=== PATIENT | female | born 1990 | race Two or more races ===

== ENCOUNTER 2020-01-07 17:46 | Inpatient (IN) | payer MEDICAID ==
[~2020-01-07] VITALS: Ht 160 cm; Wt 64.5 kg
[2020-01-07] MEDS ORDERED: SODIUM CHLORIDE 0.9% 1,000 ML IV ONE ×3 (18:12→19:17)
[2020-01-07 18:40] LABS: Eosinophils # (auto) 0 10 ^3/uL (0-0.8); Monocytes # (auto) 1.3 10 ^3/uL (0-1.3); Monocytes % (auto) 8.9 % (0.0-12.0)
[2020-01-07 18:42] LABS: Basophils # (auto) 0 10 ^3/uL (0-0.2); Basophils % (auto) 0.3 % (0.0-2.0); Hematocrit 42.2 % (36.0-46.0); Lymphocytes # (auto) 0.7 10 ^3/uL (0.4-5.4); Mean Corpuscular Hemoglobin 37.8 pg (28.0-32.0); Mean Corpuscular Hgb Conc. 33.2 g/dL (32.0-36.0); Neutrophils # (auto) 12.5 10 ^3/uL (1.6-8.6); Neutrophils % (auto) 85.8 % (37.0-80.0); Nucleated Red Blood Cells % 0.1 %; Platelet Count (auto) 355 10^3/uL (140-450); White Blood Cell 14.6 10^3/uL (4.4-10.8)
[2020-01-07 18:47] LABS: Red Cell Distribution Width 22.1 % (11.8-14.3)
[2020-01-07 18:57] LABS: Albumin 5.1 g/dL (3.4-5.0); Calcium 9.6 mg/dL (8.5-10.1); Magnesium 1.3 mg/dL (1.6-2.6)
[2020-01-07 18:59] LABS: BUN/Creatinine Ratio 9.6
[2020-01-07 19:02] LABS: Bilirubin, Total 0.8 mg/dL (0.2-1.0); Total Protein 9.4 g/dL (6.4-8.2)
[2020-01-07 19:04] LABS: Urine Bacteria FEW /hpf (None Seen); Urine Blood TRACE /uL (Negative); Urine Hyaline Cast MANY /lpf (0 - 2); Urine Mucus FEW (None Seen); Urine Specific Gravity 1.027 (1.001-1.035); Urine WBC 12 /hpf (0 - 5)
[2020-01-07 19:13] LABS: Potassium 2.9 mmol/L (3.5-5.1)
[2020-01-07] MEDS ORDERED: THIAMINE 100mg/ml INJ (200mg/2ml VIAL) IV ONE (19:30)
[2020-01-07] MEDS ORDERED: cefTRIAXone 1GM/50ML D5W 50 ML IV ONE (19:30)
[2020-01-07] MEDS: POTASSIUM CHL 20MEQ/100ML 100 ML IV SCH ×2 (20:58→22:54)
[2020-01-07] MEDS ORDERED: SODIUM CHLORIDE 0.9% 500 ML IV ONE (22:00)
[2020-01-07 23:21] LABS: Amylase 63 U/L (25-115); Lipase 68 U/L (73-393)
[2020-01-08] MEDS ORDERED: ONDANSETRON HCL 4 MG/2 ML VIAL IV PRN (00:45)
[2020-01-08] MEDS ORDERED: TEMAZEPAM 15 MG CAP PO PRN (00:45)
[2020-01-08] MEDS: SOD CHL 0.9%/ KCL 20MEQ 1,000 ML IV SCH ×2 (01:34→14:20)
[2020-01-08] MEDS: MAGNESIUM SULFATE 1GM/100ML 100 ML IV SCH ×2 (01:37→03:05)
[2020-01-08 03:00] VITALS: BP 143/92
--- NOTE | 2020-01-08 03:05 | NUR ---
MS admit from ER MIKE STATON admitted to tele/MS, SBAR not received. Patient oriented to [facility] RN, unit, room, bed, and unit policies regarding patient care and visiting hours. Patient weighed by bedscale and encouraged to call if they need something. All questions and concerns addressed, patient verbalized understanding.
[2020-01-08] MEDS ORDERED: chlordiazePOXIDE HCL 25 MG CAP PO PRN (03:15)
[2020-01-08 05:14] VITALS: BP 143/92
--- NOTE | 2020-01-08 08:00 | NUR ---
OPENING SHIFT NOTE ASSUMED CARE OF PATIENT AWAKE AND ALERT. NO S/S OF DISTRESS NOTED OR COMPLAINTS OF PAIN. PATIENT UPDATED ON POC FOR THE DAY AND ALL QUESTIONS ANSWERED. BED IS IN LOWEST, LOCKED POSITION WITH SIDE RAILS UP X2 AND CALL LIGHT WITHIN REACH. WILL CONTINUE TO MONITOR Q1H AND PRN.
[2020-01-08 09:00] VITALS: BP 133/84
[2020-01-08] MEDS: cefTRIAXone 1GM/50ML D5W 50 ML IV SCH (09:22)
[2020-01-08] MEDS: THIAMINE HCL 100 MG TAB PO SCH (09:23)
[2020-01-08] MEDS: FAMOTIDINE 20 MG TAB PO SCH ×2 (09:23→22:45)
[2020-01-08 10:10] LABS: Basophils # (auto) 0 10 ^3/uL (0-0.2); Basophils % (auto) 0.2 % (0.0-2.0); Eosinophils # (auto) 0 10 ^3/uL (0-0.8); Hematocrit 35.7 % (36.0-46.0); Hemoglobin 12.1 g/dL (12.2-16.2); Lymphocytes % (auto) 11.1 % (10.0-50.0); Mean Corpuscular Hemoglobin 38.4 pg (28.0-32.0); Mean Corpuscular Hgb Conc. 33.8 g/dL (32.0-36.0); Mean Corpuscular Volume 113.5 fL (80.0-100.0); Monocytes # (auto) 0.8 10 ^3/uL (0-1.3); Monocytes % (auto) 8.8 % (0.0-12.0); Neutrophils # (auto) 7.3 10 ^3/uL (1.6-8.6); Neutrophils % (auto) 79.9 % (37.0-80.0); Platelet Count (auto) 267 10^3/uL (140-450); Red Blood Cells 3.15 10^6/uL (4.0-5.20); White Blood Cell 9.1 10^3/uL (4.4-10.8)
[2020-01-08 10:11] LABS: Red Cell Distribution Width 22.3 % (11.8-14.3)
[2020-01-08 10:27] LABS: Albumin 3.8 g/dL (3.4-5.0); Calcium 8.1 mg/dL (8.5-10.1); Potassium 3.4 mmol/L (3.5-5.1)
[2020-01-08 10:32] LABS: Bilirubin, Total 0.8 mg/dL (0.2-1.0); Total Protein 7.2 g/dL (6.4-8.2)
[2020-01-08] MEDS ORDERED: POTASSIUM CHLORIDE 20 MEQ, LIDOCAINE 1% (LOCAL ANESTH.) 2 ML in SODIUM CHL 0.9% 100 ML IV ONE (12:00)
--- NOTE | 2020-01-08 12:10 | NUR ---
COVID SWAB [facility] COVID SWAB TAKEN AND WALKED TO LAB.
[2020-01-08 13:00] VITALS: BP 136/86
[2020-01-08 16:29] VITALS: BP 133/87
--- NOTE | 2020-01-08 19:00 | NUR ---
OPENING SHIFT NOTE ASSUMED CARE OF PATIENT AWAKE AND ALERT X 4 AMBULATING, TOOK A SHOWER, NO DIZZINESS. PATIENT DENIES HAVING A N/V, TOLERATED WELL CLEAR LIQUIDS DINNER. NO S/S OF DISTRESS NOTED OR COMPLAINTS OF PAIN. PATIENT UPDATED ON POC FOR THE DAY AND ALL QUESTIONS ANSWERED. BED IS IN LOWEST, LOCKED POSITION WITH SIDE RAILS UP X2 AND CALL LIGHT WITHIN REACH. WILL CONTINUE TO MONITOR.
[2020-01-08 21:43] VITALS: BP 143/84
[2020-01-09] MEDS: SOD CHL 0.9%/ KCL 20MEQ 1,000 ML IV SCH (03:38)
[2020-01-09 04:42] VITALS: BP 142/90
[2020-01-09 05:43] LABS: Basophils # (auto) 0.1 10 ^3/uL (0-0.2); Eosinophils # (auto) 0 10 ^3/uL (0-0.8); Eosinophils % (auto) 0.1 % (0.0-7.0); Hemoglobin 11.7 g/dL (12.2-16.2); Monocytes # (auto) 0.5 10 ^3/uL (0-1.3); Neutrophils # (auto) 3.7 10 ^3/uL (1.6-8.6); White Blood Cell 5.5 10^3/uL (4.4-10.8)
[2020-01-09 05:45] LABS: Hematocrit 34.6 % (36.0-46.0); Lymphocytes # (auto) 1.2 10 ^3/uL (0.4-5.4); Lymphocytes % (auto) 21.9 % (10.0-50.0); Mean Corpuscular Hemoglobin 38.8 pg (28.0-32.0); Mean Corpuscular Hgb Conc. 33.7 g/dL (32.0-36.0); Mean Corpuscular Volume 115.2 fL (80.0-100.0); Monocytes % (auto) 9.3 % (0.0-12.0); Neutrophils % (auto) 67.7 % (37.0-80.0); Nucleated Red Blood Cells % 0.1 %; Platelet Count (auto) 227 10^3/uL (140-450); Red Cell Distribution Width 21.6 % (11.8-14.3)
[2020-01-09 06:12] LABS: Albumin 3.7 g/dL (3.4-5.0); Potassium 3.5 mmol/L (3.5-5.1)
[2020-01-09 06:17] LABS: BUN/Creatinine Ratio 9.9; Bilirubin, Total 0.8 mg/dL (0.2-1.0)
[2020-01-09 08:47] VITALS: BP 140/98
[2020-01-09] MEDS: cefTRIAXone 1GM/50ML D5W 50 ML IV SCH (09:09)
[2020-01-09] MEDS: THIAMINE HCL 100 MG TAB PO SCH (09:09)
[2020-01-09] MEDS: FAMOTIDINE 20 MG TAB PO SCH (09:10)
[2020-01-09] MEDS ORDERED: NITR100C6 PO (10:41)
[2020-01-09] MEDS ORDERED: FAMO-12 PO (10:41)
[2020-01-09] MEDS ORDERED: CLON0.1T PO (10:41)
[2020-01-09] MEDS ORDERED: THIA100T10 PO (10:41)
[2020-01-09] MEDS ORDERED: FOLI1TAB6 PO (10:41)
[2020-01-09 13:08] VITALS: BP 138/82
[2020-01-09 14:12] VITALS: BP 138/82
--- NOTE | 2020-01-09 15:23 | NUR ---
Discharge instructions given as ordered. Encourage to follow up with PMD as instructed. All questions and concerns addressed. Patient verbalized understanding. IV removed with catheter intact, pressure dressing applied. Patient ambulated to vehicle with all personal belongings, accompanied by staff. No distress noted at time of departure.
== END 2020-01-09 15:23 | disposition home or self-care (01) | DRG 249 ==
LOC: ER 17:46 → WEST WING 17:47
PROVIDERS: ADMIT Nurse Practitioner; ATTEND Internal Medicine
DX: K52.9 Noninfective gastroenteritis and colitis, unspecified (principal); K70.9 Alcoholic liver disease, unspecified; N39.0 Urinary tract infection, site not specified; E86.0 Dehydration; E87.6 Hypokalemia; R73.9 Hyperglycemia, unspecified; D72.829 Elevated white blood cell count, unspecified; N17.0 Acute kidney failure with tubular necrosis; D75.89 Other specified diseases of blood and blood-forming organs; Z20.828 Contact with and (suspected) exposure to other viral communicable diseases; K76.0 Fatty (change of) liver, not elsewhere classified
CPT/HCPCS: 36415; 36600; 71045; 74176; 80053; 80320; 81001; 81025; 82150; 82805; 83605; 83690; 83735; 84702; 85025; 87040; 87086; 99291; G0378; J0696; J2001; J3480

== ENCOUNTER → 2020-04-02 | Outpatient (CLI) | payer MEDICAID ==
[~2020-04-02] MED LIST: CLON0.1T PO; FAMO-12 PO; FOLI1TAB6 PO; NITR100C6 PO; THIA100T10 PO
[2020-04-02 09:26] LABS: Basophils # (auto) 0.1 10 ^3/uL (0-0.2); Monocytes # (auto) 0.5 10 ^3/uL (0-1.3); Nucleated Red Blood Cells % 0.1 %; White Blood Cell 6.1 10^3/uL (4.4-10.8)
[2020-04-02 09:28] LABS: Basophils % (auto) 1.3 % (0.0-2.0); Eosinophils # (auto) 0.2 10 ^3/uL (0-0.8); Eosinophils % (auto) 3.3 % (0.0-7.0); Hematocrit 38.8 % (36.0-46.0); Hemoglobin 13.3 g/dL (12.2-16.2); Lymphocytes # (auto) 2.1 10 ^3/uL (0.4-5.4); Lymphocytes % (auto) 33.9 % (10.0-50.0); Mean Corpuscular Hemoglobin 35.2 pg (28.0-32.0); Mean Corpuscular Hgb Conc. 34.2 g/dL (32.0-36.0); Mean Corpuscular Volume 103.1 fL (80.0-100.0); Monocytes % (auto) 7.8 % (0.0-12.0); Neutrophils # (auto) 3.3 10 ^3/uL (1.6-8.6); Neutrophils % (auto) 53.7 % (37.0-80.0); Platelet Count (auto) 300 10^3/uL (140-450); Red Blood Cells 3.77 10^6/uL (4.0-5.20); Red Cell Distribution Width 17.4 % (11.8-14.3)
[2020-04-02 10:06] LABS: BUN/Creatinine Ratio 9.4; Bilirubin, Total 0.5 mg/dL (0.2-1.0); Calcium 8.8 mg/dL (8.5-10.1); Total Protein 7.2 g/dL (6.4-8.2)
[2020-04-02 10:13] LABS: Potassium 2.9 mmol/L (3.5-5.1)
== END | disposition home or self-care (01) ==
LOC: LAB 09:02
PROVIDERS: ATTEND Physician Assistant
DX: I10 Essential (primary) hypertension (principal); E87.6 Hypokalemia; N17.9 Acute kidney failure, unspecified; K21.01 Gastro-esophageal reflux disease with esophagitis, with bleeding; Z72.89 Other problems related to lifestyle
CPT/HCPCS: 36415; 80053; 80061; 85025

== ENCOUNTER 2020-05-21 12:50 | Emergency (ER) | payer MEDICAID ==
[~2020-05-21] VITALS: Ht 162.6 cm; Wt 63.5 kg
[2020-05-21 13:14] VITALS: BP 150/91
[2020-05-21] MEDS ORDERED: LORazepam 2MG/ML-1ML VIAL IV ONE (13:15)
[2020-05-21] MEDS ORDERED: PROCHLORPERAZINE EDISYLATE 5 MG/ML 2ML VIAL IV ONE (13:15)
[2020-05-21] MEDS ORDERED: SODIUM CHLORIDE 0.9% 1,000 ML IV ONE (13:15)
[2020-05-21 13:28] LABS: Basophils # (auto) 0.1 10 ^3/uL (0-0.2); Eosinophils # (auto) 0 10 ^3/uL (0-0.8); Eosinophils % (auto) 0.1 % (0.0-7.0); Hemoglobin 13.1 g/dL (12.2-16.2); Lymphocytes # (auto) 1.5 10 ^3/uL (0.4-5.4); Monocytes # (auto) 0.3 10 ^3/uL (0-1.3)
[2020-05-21 13:30] LABS: Basophils % (auto) 1.3 % (0.0-2.0); Hematocrit 37.9 % (36.0-46.0); Lymphocytes % (auto) 22.2 % (10.0-50.0); Mean Corpuscular Hemoglobin 37.1 pg (28.0-32.0); Mean Corpuscular Hgb Conc. 34.7 g/dL (32.0-36.0); Monocytes % (auto) 4.2 % (0.0-12.0); Neutrophils # (auto) 4.8 10 ^3/uL (1.6-8.6); Neutrophils % (auto) 72.2 % (37.0-80.0); Platelet Count (auto) 374 10^3/uL (140-450); Red Blood Cells 3.54 10^6/uL (4.0-5.20); Red Cell Distribution Width 17.2 % (11.8-14.3); White Blood Cell 6.7 10^3/uL (4.4-10.8)
[2020-05-21 13:49] LABS: Albumin 4.6 g/dL (3.4-5.0); Calcium 8.3 mg/dL (8.5-10.1); Potassium 3.6 mmol/L (3.5-5.1)
[2020-05-21 13:52] LABS: BUN/Creatinine Ratio 15.1; Bilirubin, Total 0.7 mg/dL (0.2-1.0); Total Protein 8.3 g/dL (6.4-8.2)
== END 2020-05-21 14:45 | disposition home or self-care (01) ==
LOC: ER 12:50
DX: F10.239 Alcohol dependence with withdrawal, unspecified (principal); I10 Essential (primary) hypertension; Y90.8 Blood alcohol level of 240 mg/100 ml or more
CPT/HCPCS: 36415; 80053; 80320; 85025; 96361; 96374; 96375; 99284; J0780; J2060; J7030

== ENCOUNTER 2020-08-28 18:39 | Emergency (ER) | payer MEDICAID ==
[~2020-08-28] VITALS: Ht 162.6 cm; Wt 63.5 kg
[2020-08-28] MEDS ORDERED: MORPHINE SULFATE 4 MG/ML SYR/VIAL IV ONE ×2 (19:15→21:00)
[2020-08-28] MEDS ORDERED: ONDANSETRON HCL 4 MG/2 ML VIAL IV ONE (19:15)
[2020-08-28] MEDS ORDERED: BACITRACIN TOP OINT 1 UD PKG TOP ONE (20:45)
[2020-08-29 00:46] VITALS: BP 131/77
== END 2020-08-29 01:34 | disposition home or self-care (01) ==
LOC: ER 18:39
DX: S51.812A Laceration without foreign body of left forearm, initial encounter (principal); S80.211A Abrasion, right knee, initial encounter; M54.2 Cervicalgia; V23.4XXA Motorcycle driver injured in collision with car, pick-up truck or van in traffic accident, initial encounter; Y93.89 Activity, other specified; Y92.488 Other paved roadways as the place of occurrence of the external cause; Y99.8 Other external cause status
CPT/HCPCS: 12002; 70450; 71250; 72125; 72170; 73090; 73560; 73590; 74176; 96374; 96375; 96376; 99285; J2270; J2405; J7030

== ENCOUNTER 2020-09-12 16:10 | Emergency (ER) | payer MEDICAID, OTHER ==
[~2020-09-12] VITALS: Ht 162.6 cm; Wt 63.5 kg
[2020-09-12 16:11] VITALS: BP 141/84
== END 2020-09-12 17:18 | disposition home or self-care (01) ==
LOC: ER 16:11
DX: S51.812D Laceration without foreign body of left forearm, subsequent encounter (principal); Z79.899 Other long term (current) drug therapy; X58.XXXD Exposure to other specified factors, subsequent encounter

== ENCOUNTER 2021-02-11 18:22 | Emergency (ER) | payer MEDICAID ==
[~2021-02-11] VITALS: Ht 162.6 cm; Wt 60.8 kg
[2021-02-11] MEDS ORDERED: KETOROLAC TROMETH 30 MG/ML 1ML VIAL IV ONE (19:45)
[2021-02-11] MEDS ORDERED: SODIUM CHLORIDE 0.9% 1,000 ML IVB ONE (19:45)
[2021-02-11 19:57] LABS: Basophils # (auto) 0.1 10 ^3/uL (0-0.2); Eosinophils # (auto) 0 10 ^3/uL (0-0.8); Monocytes # (auto) 0.5 10 ^3/uL (0-1.3); Neutrophils # (auto) 4.8 10 ^3/uL (1.6-8.6); Red Cell Distribution Width 13.4 % (11.8-14.3)
[2021-02-11 19:58] LABS: Basophils % (auto) 1.2 % (0.0-2.0); Eosinophils % (auto) 0.6 % (0.0-7.0); Hematocrit 41.6 % (36.0-46.0); Lymphocytes # (auto) 1.6 10 ^3/uL (0.4-5.4); Lymphocytes % (auto) 22.3 % (10.0-50.0); Mean Corpuscular Hemoglobin 34.6 pg (28.0-32.0); Mean Corpuscular Hgb Conc. 33.5 g/dL (32.0-36.0); Mean Corpuscular Volume 103.3 fL (80.0-100.0); Monocytes % (auto) 7.4 % (0.0-12.0); Neutrophils % (auto) 68.5 % (37.0-80.0); Red Blood Cells 4.03 10^6/uL (4.0-5.20)
[2021-02-11 20:10] LABS: Albumin 4.3 g/dL (3.4-5.0)
[2021-02-11 20:22] LABS: BUN/Creatinine Ratio 7.4; Bilirubin, Total 0.6 mg/dL (0.2-1.0); Calcium 9.4 mg/dL (8.5-10.1)
[2021-02-11 20:41] LABS: Potassium 2.9 mmol/L (3.5-5.1)
[2021-02-11 20:47] LABS: Urine Bacteria FEW /hpf (None Seen); Urine Blood Negative /uL (Negative); Urine Mucus MODERATE (None Seen); Urine Specific Gravity 1.023 (1.001-1.035); Urine WBC 63 /hpf (0 - 5); Urine WBC Clumps PRESENT /hpf (None Seen)
[2021-02-11 22:37] VITALS: BP 110/68
== END 2021-02-11 22:57 | disposition home or self-care (01) ==
LOC: ER 18:22
DX: N39.0 Urinary tract infection, site not specified (principal); E78.5 Hyperlipidemia, unspecified; I10 Essential (primary) hypertension; F12.10 Cannabis abuse, uncomplicated
CPT/HCPCS: 36415; 74176; 80053; 81001; 85025

== ENCOUNTER 2021-04-29 13:02 | Inpatient (IN) | payer MEDICAID ==
[~2021-04-29] VITALS: Ht 162.6 cm; Wt 63.4 kg
[2021-04-29 14:25] LABS: Basophils # (auto) 0.1 10 ^3/uL (0-0.2); Basophils % (auto) 0.7 % (0.0-2.0); Eosinophils # (auto) 0.1 10 ^3/uL (0-0.8); Hematocrit 34.9 % (36.0-46.0); Hemoglobin 11.8 g/dL (12.2-16.2); Lymphocytes # (auto) 1.2 10 ^3/uL (0.4-5.4); Nucleated Red Blood Cells % 0.1 %; Red Blood Cells 3.33 10^6/uL (4.0-5.20)
[2021-04-29 14:27] LABS: Eosinophils % (auto) 1.2 % (0.0-7.0); Lymphocytes % (auto) 10.9 % (10.0-50.0); Mean Corpuscular Hemoglobin 35.4 pg (28.0-32.0); Mean Corpuscular Hgb Conc. 33.8 g/dL (32.0-36.0); Mean Corpuscular Volume 104.8 fL (80.0-100.0); Monocytes % (auto) 9.6 % (0.0-12.0); Neutrophils # (auto) 8.2 10 ^3/uL (1.6-8.6); Neutrophils % (auto) 77.6 % (37.0-80.0); Red Cell Distribution Width 13.7 % (11.8-14.3); White Blood Cell 10.6 10^3/uL (4.4-10.8)
[2021-04-29 14:37] LABS: INR 1.12 (0.9-1.15); Partial Thromboplastin Time 26.6 sec (23.6-33.0)
[2021-04-29 14:41] LABS: Albumin 3.7 g/dL (3.4-5.0)
[2021-04-29 14:44] LABS: BUN/Creatinine Ratio 3.8; Bilirubin, Total 1.2 mg/dL (0.2-1.0)
[2021-04-29 15:10] LABS: Potassium 2.6 mmol/L (3.5-5.1)
[2021-04-29] MEDS ORDERED: POTASSIUM CHL 20MEQ/50ML 50 ML IV ONE (16:30)
[2021-04-29] MEDS: POTASSIUM CHL 20MEQ/50ML 50 ML IV SCH ×3 (17:10→21:47)
[2021-04-29] MEDS ORDERED: ONDANSETRON HCL 4 MG/2 ML VIAL IV PRN (22:15)
[2021-04-29] MEDS ORDERED: FOLIC ACID 1 MG, MULTIPLE VITAMIN 10 ML, MAGNESIUM SULF SDV 50% 8 MEQ, THIAMINE INJ 100... INJ ONE ×5 (22:15)
[2021-04-29] MEDS ORDERED: LACTULOSE 20Gm/30ML SOLN PO PRN (22:15)
[2021-04-29] MEDS ORDERED: SODIUM CHLORIDE 0.9% 1,000 ML IV ONE (22:15)
[2021-04-29] MEDS ORDERED: ACETAMINOPHEN 325 MG TAB PO PRN (22:15)
[2021-04-29] MEDS ORDERED: HYDROcodone-ACET 5/325MG TAB PO PRN (22:15)
[2021-04-29 23:46] VITALS: BP 115/68
[2021-04-29] MEDS ORDERED: ONDA-188 PO (23:46)
[2021-04-29] MEDS ORDERED: LISI-716 PO (23:46)
[2021-04-29] MEDS ORDERED: DULO-141 PO (23:46)
[2021-04-29 23:58] VITALS: BP 115/68
[2021-04-30 05:00] VITALS: BP 100/47
[2021-04-30] MEDS: POTASSIUM CHL 20 Meq TABLET PO SCH ×3 (05:59→21:34)
[2021-04-30 06:31] LABS: Basophils # (auto) 0.1 10 ^3/uL (0-0.2); Eosinophils # (auto) 0.1 10 ^3/uL (0-0.8); Eosinophils % (auto) 1.2 % (0.0-7.0); Lymphocytes # (auto) 1.2 10 ^3/uL (0.4-5.4); White Blood Cell 9.2 10^3/uL (4.4-10.8)
[2021-04-30 06:35] LABS: Basophils % (auto) 0.7 % (0.0-2.0); Hematocrit 33.5 % (36.0-46.0); Hemoglobin 11.5 g/dL (12.2-16.2); Lymphocytes % (auto) 13.3 % (10.0-50.0); Mean Corpuscular Hemoglobin 35.7 pg (28.0-32.0); Mean Corpuscular Hgb Conc. 34.5 g/dL (32.0-36.0); Mean Corpuscular Volume 103.6 fL (80.0-100.0); Monocytes % (auto) 10.8 % (0.0-12.0); Neutrophils # (auto) 6.8 10 ^3/uL (1.6-8.6); Nucleated Red Blood Cells % 0.2 %; Red Blood Cells 3.23 10^6/uL (4.0-5.20); Red Cell Distribution Width 13.8 % (11.8-14.3)
[2021-04-30 07:24] LABS: Calcium 8.2 mg/dL (8.5-10.1)
[2021-04-30] MEDS: SODIUM BICARBONATE 50ML VIAL 50 ML in SOD CHL 0.45% 1,000 ML IV SCH ×3 (08:00→19:30)
[2021-04-30 09:27] VITALS: BP 104/57
[2021-04-30 09:49] LABS: Alcohol, Urine < 3.0 mg/dL (0-10); Amphetamine Screen, Urine NEGATIVE (NEGATIVE); Barbiturate Scree,Urine NEGATIVE (NEGATIVE); Benzodiazephine Screen, Urine POSITIVE (NEGATIVE); Cannabinoid Screen, Urine NEGATIVE (NEGATIVE); Cocaine Screen, Urine NEGATIVE (NEGATIVE); Opiate Scree,Urine NEGATIVE (NEGATIVE); Phencyclidine Screen, Urine NEGATIVE (NEGATIVE)
[2021-04-30 09:52] LABS: Protein, Urine 151.3 mg/dL (0.0-11.9)
[2021-04-30] MEDS ORDERED: SODIUM BICARBONATE 50ML VIAL 50 ML in SOD CHL 0.45% 1,000 ML IV SCH (10:00)
[2021-04-30] MEDS ORDERED: ACETAMINOPHEN 325 MG TAB PO PRN (10:15)
[2021-04-30 10:19] LABS: Urine Bacteria FEW /hpf (None Seen); Urine Blood TRACE /uL (Negative); Urine Hyaline Cast FEW /lpf (0 - 2); Urine Mucus FEW (None Seen); Urine Specific Gravity 1.017 (1.001-1.035); Urine WBC 7 /hpf (0 - 5)
[2021-04-30 13:00] VITALS: BP 91/50
[2021-04-30] MEDS ORDERED: POTASSIUM PHOSPHATE 22 MEQ in SODIUM CHL 0.9% 100 ML IV ONE ×2 (14:15→18:00)
[2021-04-30] MEDS ORDERED: POTASSIUM CHLORIDE 40 MEQ, LIDOCAINE 1% (LOCAL ANESTH.) 4 ML in SODIUM CHL 0.9% 250 ML IV ONE (14:15)
[2021-04-30] MEDS: MAGNESIUM SULFATE 1GM/100ML 100 ML IV SCH ×2 (14:32→16:00)
[2021-04-30 16:40] VITALS: BP 102/55
[2021-04-30] MEDS ORDERED: THIAMINE HCL 100 MG TAB PO SCH (22:00)
[2021-04-30] MEDS ORDERED: FOLIC ACID 1 MG TAB PO SCH (22:00)
[2021-04-30 22:15] VITALS: BP 105/57
[2021-05-01 05:00] VITALS: BP 105/52
[2021-05-01 05:06] LABS: Basophils # (auto) 0.1 10 ^3/uL (0-0.2); Eosinophils # (auto) 0.1 10 ^3/uL (0-0.8); Lymphocytes # (auto) 1.1 10 ^3/uL (0.4-5.4); Monocytes # (auto) 1.2 10 ^3/uL (0-1.3)
[2021-05-01 05:09] LABS: Basophils % (auto) 0.8 % (0.0-2.0); Hematocrit 31.9 % (36.0-46.0); Hemoglobin 11.1 g/dL (12.2-16.2); Lymphocytes % (auto) 13.3 % (10.0-50.0); Mean Corpuscular Hgb Conc. 34.7 g/dL (32.0-36.0); Mean Corpuscular Volume 103.9 fL (80.0-100.0); Monocytes % (auto) 14.2 % (0.0-12.0); Neutrophils # (auto) 6.1 10 ^3/uL (1.6-8.6); Neutrophils % (auto) 70.7 % (37.0-80.0); Red Blood Cells 3.07 10^6/uL (4.0-5.20); Red Cell Distribution Width 13.5 % (11.8-14.3); White Blood Cell 8.6 10^3/uL (4.4-10.8)
[2021-05-01 05:26] LABS: Albumin 3.1 g/dL (3.4-5.0)
[2021-05-01 05:27] LABS: BUN/Creatinine Ratio 21.7; Calcium 8.3 mg/dL (8.5-10.1); Potassium 4.2 mmol/L (3.5-5.1)
[2021-05-01 05:31] LABS: Bilirubin, Direct 0.5 mg/dL (0-0.2); Bilirubin, Total 0.8 mg/dL (0.2-1.0); Total Protein 6.2 g/dL (6.4-8.2)
[2021-05-01] MEDS: SODIUM BICARBONATE 50ML VIAL 50 ML in SOD CHL 0.45% 1,000 ML IV SCH ×2 (06:25→16:30)
[2021-05-01 08:13] VITALS: BP 109/67
[2021-05-01 08:30] VITALS: BP 109/67
[2021-05-01] MEDS: POTASSIUM CHL 20 Meq TABLET PO SCH (08:33)
[2021-05-01 11:58] LABS: Phosphorus 0.5 mg/dL (2.5-4.90)
[2021-05-01] MEDS ORDERED: SODIUM PHOSPHATES 20 MEQ in SODIUM CHL 0.9% 100 ML IV ONE (12:15)
[2021-05-01 12:40] VITALS: BP 106/67
[2021-05-01] MEDS ORDERED: POTASSIUM PHOSPHATE 22 MEQ in SODIUM CHL 0.9% 100 ML IV ONE (12:45)
[2021-05-01 17:30] VITALS: BP 101/72
[2021-05-01] MEDS ORDERED: NEUTRA-PHOS TABLET PO SCH (18:00)
[2021-05-03 13:36] LABS: Hepatitis A Ab IgM Negative
[2021-05-03 13:55] LABS: Hepatitis B Core IgM Negative
[2021-05-03 13:58] LABS: Hepatitis C Antibody Negative (Negative)
== END 2021-05-01 18:15 | disposition home or self-care (01) | DRG 469 ==
LOC: ER 13:02 → TELE 22:02 → TELE-CENTR 22:52
PROVIDERS: ADMIT Internal Medicine; ATTEND Internal Medicine
DX: N17.9 Acute kidney failure, unspecified (principal); E83.39 Other disorders of phosphorus metabolism; E83.42 Hypomagnesemia; E87.1 Hypo-osmolality and hyponatremia; E78.5 Hyperlipidemia, unspecified; R74.8 Abnormal levels of other serum enzymes; Z20.822 Contact with and (suspected) exposure to COVID-19; E87.6 Hypokalemia; R74.01 Elevation of levels of liver transaminase levels; R79.89 Other specified abnormal findings of blood chemistry; F10.10 Alcohol abuse, uncomplicated; F12.90 Cannabis use, unspecified, uncomplicated; I10 Essential (primary) hypertension; Z82.5 Family history of asthma and other chronic lower respiratory diseases
CPT/HCPCS: 36415; 71045; 76705; 76775; 80048; 80053; 80074; 80076; 80307; 80320; 81001; 82570; 83735; 84100; 84156; 84166; 85025; 85610; 85730; 87426; 96361; 96365; 96375; G0378; J2001; J2405

== ENCOUNTER 2021-10-16 09:09 | Emergency (ER) | payer MEDICAID ==
[~2021-10-16] VITALS: Ht 162.6 cm; Wt 64.4 kg
[~2021-10-16 09:09] MED LIST changes: -CLON0.1T PO; +DULO-141 PO; -NITR100C6 PO
[2021-10-16] MEDS ORDERED: IBUP600T27 PO (10:08)
[2021-10-16 10:21] VITALS: BP 143/86
== END 2021-10-16 10:28 | disposition home or self-care (01) ==
LOC: ER 09:09
DX: S30.0XXA Contusion of lower back and pelvis, initial encounter (principal); I10 Essential (primary) hypertension; E78.5 Hyperlipidemia, unspecified; Z86.2 Personal history of diseases of the blood and blood-forming organs and certain disorders involving the immune mechanism; Z79.1 Long term (current) use of non-steroidal anti-inflammatories (NSAID); Z79.899 Other long term (current) drug therapy; W01.0XXA Fall on same level from slipping, tripping and stumbling without subsequent striking against object, initial encounter; Y93.89 Activity, other specified; Y92.89 Other specified places as the place of occurrence of the external cause; Y99.8 Other external cause status

== ENCOUNTER → 2023-08-22 | Outpatient (CLI) | payer MEDICAID ==
[~2023-08-22] MED LIST changes: +FOLI-119 PO; -FOLI1TAB6 PO; +IBUP-1454 PO
[2023-08-22 10:21] LABS: Basophils # (auto) 0.1 10 ^3/uL (0-0.2); Basophils % (auto) 1.2 % (0.0-2.0); Eosinophils # (auto) 0.2 10 ^3/uL (0-0.8); Hematocrit 41.8 % (36.0-46.0); Hemoglobin 13.9 g/dL (12.2-16.2); Lymphocytes # (auto) 2.5 10 ^3/uL (0.4-5.4); Lymphocytes % (auto) 43.1 % (10.0-50.0); Mean Corpuscular Hemoglobin 30.8 pg (28.0-32.0); Mean Corpuscular Hgb Conc. 33.2 g/dL (32.0-36.0); Mean Corpuscular Volume 92.7 fL (80.0-100.0); Monocytes # (auto) 0.4 10 ^3/uL (0-1.3); Monocytes % (auto) 6.2 % (0.0-12.0); Neutrophils # (auto) 2.7 10 ^3/uL (1.6-8.6); Neutrophils % (auto) 46.5 % (37.0-80.0); Red Blood Cells 4.52 10^6/uL (4.0-5.20); White Blood Cell 5.9 10^3/uL (4.4-10.8)
[2023-08-22 10:30] LABS: Alanine Aminotransferase 13 U/L (7-40); Albumin 4.5 g/dL (3.2-4.8); Alkaline Phosphatase 55 U/L (46-116); Anion Gap 6 (5-15); Aspartate Aminotransferase 14 U/L (13-40); BUN/Creatinine Ratio 9.9 (10.0-20.0); Blood Urea Nitrogen 7 mg/dL (9-23); Calcium 9.6 mg/dL (8.5-10.1); Carbon Dioxide 27 mmol/L (20-30); Chloride 108 mmol/L (98-107); Cholesterol 208 mg/dL (< 200); Glucose 102 mg/dL (74-106); HDL Cholesterol 66 mg/dL (40-59); LDL Cholesterol 123 mg/dL (< 100); Sodium 141 mmol/L (136-145); Triglycerides 61 mg/dL (< 150)
[2023-08-22 10:31] LABS: Bilirubin, Total 0.4 mg/dL (0.2-1.0); Total Protein 6.7 g/dL (5.7-8.2)
[2023-08-22 10:33] LABS: Free T4 (Free Thyroxine) 1.03 ng/dL (0.89-1.76)
== END | disposition home or self-care (01) ==
LOC: LAB 09:34
DX: E78.2 Mixed hyperlipidemia (principal); F41.9 Anxiety disorder, unspecified; R73.9 Hyperglycemia, unspecified; F10.10 Alcohol abuse, uncomplicated
CPT/HCPCS: 36415; 80053; 80061; 82043; 82607; 83036; 84439; 84443; 85025